=== PATIENT | female | born 1955 | race Caucasian/White ===

== ENCOUNTER 2017-12-08 11:19 | Emergency (ER) | payer BC ==
[2017-12-08] MEDS ORDERED: NS 0.9% 1000 ML*IV.FLUID IV ONE (11:25)
[2017-12-08] MEDS ORDERED: Ondansetron INJ* 2 MG/ML VIAL IV ONE (11:25)
[2017-12-08] MEDS ORDERED: Acetaminophen TAB* 325 MG PO ONE (11:39)
--- NOTE | 2017-12-08 11:45 | ED ---
Sepsis HPI - HPI Summary HPI Summary: Patient presents with 2 day history of nausea vomiting and diarrhea. She was sent over by her primary care provider with a fever, tachycardia and low blood pressure. She also reported dizziness/lightheadedness. Patient reports her symptoms initially started on Monday with a dry tickle in her throat and progressed to sinus and ear congestion along with cough and chest congestion. She has not taken anything for fever yet today. She's not been able to hold down any fluids over the past 2 days other than sips of water. She is still urinating and reports her urine is clear. She denies hematochezia, mucousy stool, abdominal pain however she has developed some soreness from all the vomiting and diarrhea. Her recently had a URI and she thought that's what she had at first however she's had no sick contacts with GI symptoms. Furthermore, she had pneumonia 3 weeks ago which was treated with Levaquin. Denies any side effects from that antibiotic time. She denies chest pain, shortness of breath, flank pain, dysuria, vaginal symptoms, skin changes. She is otherwise healthy and takes no medications. - History of Current Complaint Chief Complaint: EDFluSymptoms Time Seen by Provider: 12/08/17 11:28 Stated Complaint: D/V/N Hx Obtained From: Patient, Family/Hob Grinder - Pain Intensity: 5 - Allergy/Home Medications Allergies/Adverse Reactions: Allergies Allergy/AdvReac Type Severity Reaction Status Date / Time egg Allergy Nausea And Verified 12/08/17 11:21 Vomiting pineapple Allergy Nausea And Verified 12/08/17 11:21 Vomiting Home Medications: Home Medications Cyanocobalamin TAB* [Vitamin B12 TAB*] 1,000 mcg SL DAILY 12/08/17 [History Confirmed 12/08/17] PMH/Surg Hx/FS Hx/Imm Hx Previously Healthy: Yes Endocrine/Hematology History: Denies: Hx Anticoagulant Therapy, Hx Blood Disorders, Hx Diabetes, Hx Thyroid Disease, Hx Anemia, Hx Coagulopothy, Autoimmune Disease Cardiovascular History: Denies: Hx Hypertension Respiratory History: Denies: Hx Asthma, Hx Chronic Obstructive Pulmonary Disease (COPD) GI History: Denies: Hx Cirrhosis, Hx Crohn's Disease, Hx Diverticulosis, Hx Gall Bladder Disease, Hx Gastroesophageal Reflux Disease, Hx Gastrointestinal Bleed, Hx Hiatal Hernia, Hx Irritable Bowel, Hx Ulcer History: Denies: Hx Kidney Infection, Hx Kidney Stones - Immunization History Immunizations Up to Date: Yes Infectious Disease History: No Infectious Disease History: Denies: Traveled Outside the [place] in Last 30 Days - Family History Known Family History: Positive: None - Social History Lives: With Family Alcohol Use: None Hx Substance Use: No Substance Use Type: Reports: None Hx Tobacco Use: Yes - QUIT Smoking Status (MU): Former Smoker Review of Systems Positive: Fever, Fatigue Eyes: Negative Positive: Sore Throat, Ear Ache, Nasal Discharge Cardiovascular: Negative Respiratory: Negative Positive: Vomiting, Diarrhea, Nausea. Negative: Abdominal Pain Genitourinary: Negative Musculoskeletal: Negative Skin: Negative Positive: Headache. Negative: Weakness, Paresthesia, Numbness, Syncope, Slurred Speech Psychological: Normal All Other Systems Reviewed And Are Negative: Yes Physical Exam Triage Information Reviewed: Yes Vital Signs On Initial Exam: Initial Vitals Temp Pulse Resp BP Pulse Ox 101 F 118 18 91/57 92 12/08/17 11:24 12/08/17 11:24 12/08/17 11:24 12/08/17 11:24 12/08/17 11:24 Vital Signs Reviewed: Yes Appearance: Positive: No Pain Distress, Ill-Appearing - MILDLY ILL APPEARING - FATIGUED BUT RESPONDS APPROPRIATELY AND TIMELY; GLASCOW COMA SCALE 15, Obese Skin: Positive: Warm, Skin Color Reflects Adequate Perfusion, Dry Head/Face: Positive: Normal Head/Face Inspection Eyes: Positive: Normal, EOMI, JUNIOR, Conjunctiva Clear. Negative: Conjunctiva Inflammed, Discharge ENT: Positive: Hearing grossly normal, Pharynx normal - MUCOSA SOMEWHAT DRY, Nasal congestion, TMs normal, Uvula midline. Negative: Tonsillar swelling, Tonsillar exudate, Muffled voice, Sinus tenderness Neck: Positive: Supple, Nontender, No Lymphadenopathy Respiratory/Lung Sounds: Positive: Clear to Auscultation, Breath Sounds Present. Negative: Rales, Rhonchi, Wheezes Cardiovascular: Positive: Pulses are Symmetrical in both Upper and Lower Extremities, Tachycardia, S1, S2. Negative: Murmur, Rub, Leg Edema Left, Leg Edema Right Abdomen Description: Positive: Nontender - "SORE" diffusely but no focal tenderness, No Organomegaly, Soft. Negative: CVA Tenderness (R), CVA Tenderness (L), Guarding, Hernia @ Bowel Sounds: Positive: Present, Hypoactive Musculoskeletal: Positive: Normal, Strength/ROM Intact Neurological: Positive: Normal, Sensory/Motor Intact, Alert, Oriented to Person Place, Time, CN Intact II-III Psychiatric: Positive: Normal Diagnostics - Vital Signs Vital Signs Temp Pulse Resp BP Pulse Ox 12/08/17 11:24 101 F 118 18 91/57 92 - Laboratory Result Diagrams: 12/08/17 11:45 12/08/17 11:45 Lab Statement: Any lab studies that have been ordered have been reviewed, and results considered in the medical decision making process. Sepsis Re-assessment - Sepsis Re-Assessment First Eval Patient's Vitals Signs: Vital Signs Temp Pulse Resp BP Pulse Ox 12/08/17 13:13 91 12/08/17 13:12 87 17 91/60 91 12/08/17 13:00 90 20 95 12/08/17 12:42 90 16 96/64 88 12/08/17 12:37 96 16 97/66 93 12/08/17 12:13 100 16 84/58 87 12/08/17 12:11 22 12/08/17 11:24 101 F 118 18 91/57 92 Cardiovascular: RRR - Patient reports nausea, headache and fever have resolved. Her blood pressure is still lower end of normal S1 and additional 1 L of fluid will be added. She is able to tolerate by mouth liquids at this time without difficulty or pain. Second Eval Patient's Vitals Signs: Vital Signs Temp Pulse Resp BP Pulse Ox 12/08/17 16:43 87 15 112/62 95 12/08/17 16:13 85 15 91/58 95 12/08/17 16:00 86 18 94 12/08/17 15:42 79 17 105/66 93 12/08/17 15:30 99.1 F 12/08/17 15:12 84 18 98/63 89 12/08/17 15:00 85 19 93 12/08/17 14:49 92 14 95/59 92 12/08/17 14:47 91 19 74/58 92 12/08/17 14:46 89 18 81/66 92 12/08/17 14:42 89 19 79/54 92 12/08/17 14:12 93 19 97/63 90 12/08/17 14:00 91 19 89 12/08/17 13:42 94 18 106/66 90 12/08/17 13:13 91 12/08/17 13:12 87 17 91/60 91 12/08/17 13:00 90 20 95 12/08/17 12:42 90 16 96/64 88 12/08/17 12:37 96 16 97/66 93 12/08/17 12:13 100 16 84/58 87 12/08/17 12:11 22 12/08/17 11:24 101 F 118 18 91/57 92 Cardiovascular: Normal, RRR - BP improved - pt feels MUCH better - ambulated to bathroom on her own/better strength/no dizziness. Color/energy and mood are better. Nausea continues to be controlled. Was able to urinate - U/A w/o bacteria. Continues to tolerate PO well. Ready to go home. Course/Dx - Course Course Of Treatment: Patient presents from PCP's office with dizziness, lightheadedness after 2 days of nausea vomiting and diarrhea. She has a fever of 102 Fahrenheit at her PCPs office (101 Fahrenheit here). She is not taken any antipyretics prior to arrival. She is tachycardic. Sepsis protocol was initiated however max fluids were not initiated as patient has a high BMI. She was found to have influenza A with elevated monocytes /no elevated wbc's, no elevated CRP and lactic acid level within normal limits. Her symptoms improved with 2 L of fluid and 975 mg of acetaminophen plus Compazine. Due to persistent low blood pressure, one additional liter of fluid administered. Patient was able to tolerate by mouth liquids without difficulty. Due to a healthy recovery and no comorbidities, patient will be discharged home and advised to continue the course of Tamiflu (first dose given here) and take Zofran as needed to remain hydrated. She will rest and follow-up with PCP as needed or return to the emergency department for danger signs and symptoms. Note: Patient's chest x-ray is negative for acute cardio/pulm findings - her chest was also clear to auscultation during exam and she is not short of breath nor did she have chest pain or cough. ECG: tachycardia, 119 bpm, low T waves - no ST elevations. U/A w/o infection - hematuria most likely 2ndry to recent dehydration, renal function appears well on CMP and no sx of UTI. They were unable to collect a stool sample here today to assess for C. difficile. Unlikely she has this bacterial infection as she ended anbx a week or so ago but given her recent history of antibiotic use and now diarrhea, this may be tested if diarrhea persists beyond flu symptoms - advised to f/u w/ PCP. - Differential Dx/Clinical Impression Provider Diagnosis: Influenza A Discharge - Sign-Out/Discharge Documenting (check all that apply): Discharge/Admit/Transfer - Discharge Plan Condition: Stable Disposition: HOME Prescriptions: Ondansetron ODT TAB* [Zofran 4 MG Odt TAB*] 8 mg PO Q8H PRN #10 tab.odt PRN Reason: Nausea Oseltamivir CAP* [Tamiflu CAP*] 75 mg PO BID #9 cap Patient Education Materials: Influenza (ED) Referrals: Jia Abbott MD [Primary Care Provider] - Additional Instructions: You have influenza A. This is treated with Tamiflu which was sent to your pharmacy. He may also take antinausea medicine, Zofran, to reduce vomiting and diarrhea an effort to stay hydrated. Continue to drink clear fluids and advance diet as tolerated. *If you develop return of intractable vomiting and diarrhea, chest pain, shortness of breath, fever greater than 102 despite taking ibuprofen and Tylenol , headache with neck stiffness, return to the emergency department. Unable to collect a stool sample here today to assess for C. difficile. Unlikely you have this bacterial infection but given your recent antibiotic use , this test may be completed if diarrhea continues after flu symptoms resolved. Follow-up with PCP for further testing as needed. - Billing Disposition and Condition Condition: STABLE Disposition: HOME
[2017-12-08 12:12] LABS: ABS Basophils 0.1 10^3/ul (0-0.2); ABS Eosinophils 0 10^3/ul (0-0.6); ABS Lymphocytes 0.6 10^3/ul (1.0-4.8); ABS Monocytes 0.5 10^3/ul (0-0.8); ABS Neutrophils 4.4 10^3/ul (1.5-7.7); ABS Nucleated RBC 0 10^3/ul; Eosinophil % 0 % (0-6); Hematocrit 43 % (35-47); Hemoglobin 15.1 g/dl (12.0-16.0); Lymphocyte % 10.8 % (25-47); Mean Corpuscular HGB Conc 35 g/dl (31-36); Mean Corpuscular Hemoglobin 33 pg (27-31); Mean Corpuscular Volume 93 fL (80-97); Mean Platelet Volume 9.1 um3 (7.4-10.4); Nucleated Red Blood Cells % 0.1; Platelet Count 110 10^3/ul (150-450); Red Blood Count 4.64 10^6/ul (4.0-5.4); Red Cell Distribution Width 13 % (10.5-15); White Blood Count 5.5 10^3/ul (3.5-10.8)
[2017-12-08 12:20] LABS: INR 1.03 (0.77-1.02)
--- NOTE | 2017-12-08 12:26 | RAD ---
HISTORY: History of pneumonia COMPARISONS: None relevant available at the time of dictation VIEWS: 4: Frontal dual-energy and lateral views of the chest. FINDINGS: CARDIOMEDIASTINAL SILHOUETTE: The cardiomediastinal silhouette is normal. CARMELITA: The carmelita are normal. PLEURA: The costophrenic angles are sharp. No pleural abnormalities are noted. LUNG PARENCHYMA: The lungs are clear. ABDOMEN: The upper abdomen is clear. There is no subphrenic gas. BONES AND SOFT TISSUES: No bone or soft tissue abnormalities are noted. OTHER: None. IMPRESSION: NO ACTIVE CARDIOPULMONARY DISEASE.
[2017-12-08 12:30] LABS: EGFR Non-African American 43.7 (>60)
[2017-12-08] MEDS ORDERED: Oseltamivir CAP* 75 MG CAP PO ONE (13:06)
[2017-12-08] MEDS ORDERED: NS 0.9% 1000 ML* 1,000 ML IV ONE (14:53)
[2017-12-08 16:50] LABS: Urine Appearance Cloudy; Urine Blood 1+ (Negative); Urine Color Yellow; Urine Ketones Negative (Negative); Urine Protein Negative (Negative); Urine Specific Gravity 1.006 (1.010-1.030); Urine Urobilinogen Negative (Negative)
[2017-12-08 17:24] VITALS: BP 102/63
== END 2017-12-08 17:23 | disposition home or self-care (01) ==
LOC: ED 11:19
DX: J10.1 Influenza due to other identified influenza virus with other respiratory manifestations (principal)
CPT/HCPCS: 36415; 71046; 80053; 81003; 81015; 82150; 83605; 83690; 83735; 84484; 85025; 85610; 85730; 86140; 87040; 87086; 87502; 93005; 96360; 96374; 99283; A9270-GY; J2405